=== PATIENT | male | born 1965 | race Caucasian/White ===

== ENCOUNTER 2016-06-03 14:14 | Inpatient (IN) | payer MEDICARE ==
[2016-06-03 14:27] VITALS: BP 135/97
[2016-06-03] MEDS ORDERED: Sodium Chloride 0.9% 1,000 ML IV ONE (15:01)
--- NOTE | 2016-06-03 15:01 | ED Physician Chart ---
Chief Complaint/HPI - Patient Information Date Seen:: 06/03/16 Time Seen:: 14:56 Chief Complaint:: abd pain and rt chest pain History of Present Illness:: pt c/o 1 week of rt side chest discomfort..worse w mvt/breathing. no sob. no cough. no fever. hx of esophagitis last year. pt has also had rt side abd discomfort x last 2 days. pos nausea, no vomiting. mild constipation, no diarrhea. no urinary changes. no back pain. no fever. pt has had hiv for 30 yrs and is on meds. pt fears this is his esophagitis which got very bad in past bc he didnt seek help early for it. he has been on nystatin since thursday from dr juan may relief also he is on zithromax but its nt clear for what... Allergies:: Allergies Allergy/AdvReac Type Severity Reaction Status Date / Time No Known Allergies Allergy Verified 02/10/16 03:47 Vitals:: Vital Signs - 8 hr 06/03/16 06/03/16 14:27 14:30 Temp 98.2 F HR 84 RR 15 BP 135/97 135/97 O2 Sat % 99 Historian:: Patient Review of Systems - Review of Systems General/Constitutional: No fever, No chills, No weight loss, No weakness, No diaphoresis, No edema, No loss of appetite Skin: No skin lesions, No rash, No bruising Head: No headache, No light-headedness Eyes: No loss of vision, No pain, No diplopia ENT: No earache, No nasal drainage, No sore throat, No tinnitus Neck: No neck pain, No swelling, No thyromegaly, No stiffness, No mass noted Cardio Vascular: Chest pain, No palpitations, No PND, No orthopnea, No edema Pulmonary: No SOB, No cough, No sputum, No wheezing GI: Nausea, No vomiting, No diarrhea, Pain, No melena, No hematochezia, No constipation, No hematemesis G/U: No dysuria, No frequency, No hematuria Musculoskeletal: No bone or joint pain, No back pain, No muscle pain, Other (no edema, no pains) Endocrine: No polyuria, No polydipsia Psychiatric: No prior psych history, No depression, No anxiety, No suicidal ideation Hematopoietic: No bruising, No lymphadenopathy Allergic/Immuno: No urticaria, No angioedema Neurological: No syncope, No focal symptoms, No weakness, No paresthesia, No headache, No seizure, No dizziness, No confusion, No vertigo Past Medical History - Past Medical History Past Medical History: Other (hiv x 30 yrs, esophagitis) Social History: Non Smoker, No Alcohol, No Drug Use Surgical History: Hernia (b ing hernia sxs) Medication: Reviewed Family Medical History - Family Member Father History Unknown: Yes Ethnicity: Living Status: Still Living Hx Family Cancer: Yes Hx Family Hypertension: Yes Hx Family Diabetes: Yes Physical Exam - Physical Examination General/Constitutional: Awake, Well-developed, well-nourished, Alert, No distress, GCS 15, Non-toxic appearing, Ambulatory Other Gen/Cons comments:: overall wn/wd. appears stable/nontoxic Head: Atraumatic Eyes: Lids, conjuctiva normal, PERRL, EOMI Skin: Nl inspection, No rash, No skin lesions, No ecchymosis, Well hydrated, No lymphadenopathy ENMT: External ears, nose nl, Nasal exam nl, Lips, teeth, gums nl Neck: Nontender, Full ROM w/o pain, No JVD, No nuchal rigidity, No bruit, No mass, No stridor Respiratory: Nl effort/Exclusion, Clear to Auscultation, No Wheeze/Rhonchi/Rales Other Respiratory comments:: lungs clear. no chest wall tndrness Cardio Vascular: RRR, No murmur, gallop, rubs, NL S1 S2 GI: No organomegaly, No hernia, Normal BS's, Nondistended, No mass/bruits, No McBurney tenderness Other GI comments:: abd is nontender to palpation by my exam...pt says its more a discomfort than a pain.. no masses, no rebound. : No CVA tenderness Extremities: No tenderness or effusion, Full ROM, normal strength in all extremities, No edema, Normal digits & nails Neuro/Psych: Alert/oriented, DTR's symmetric, Normal sensory exam, Normal motor strength, Judgement/insight normal, Mood normal, Normal gait, No focal deficits Misc: normal gait, Normal back, No paraspinal tenderness Labs/Radiology/EKG Results - Lab Results Results: Laboratory Tests 06/03/16 06/03/1617 15:35 15:35 15:35 WBC 3.2 L D RBC 4.11 L Hgb 12.3 L D Hct 35.3 L D MCV 85.8 MCH 29.8 MCHC Differential 34.8 RDW 13.3 Plt Count 154 D MPV 9.4 Sodium 130 L Potassium 4.4 Chloride 100 Carbon Dioxide 28.4 Anion Gap 6.0 L BUN 20 Creatinine 0.8 Est GFR ( Amer) > 60.0 Est GFR (Non-Af Amer) > 60.0 BUN/Creatinine Ratio 25.0 Glucose 91 Calcium 9.1 Total Bilirubin 0.3 AST 30 ALT 19 Alkaline Phosphatase 86 Ammonia Troponin I < 0.01 L Total Protein 8.0 Albumin 4.0 L Globulin 4.0 Albumin/Globulin Ratio 1.0 Lipase Urine Source Urine Color Urine Clarity Urine pH Ur Specific [place] Urine Protein Urine Glucose (UA) Urine Ketones Urine Blood Urine Nitrate Urine Bilirubin Urine Urobilinogen Ur Leukocyte Esterase 06/03/16 06/03/16 06/03/16 15:35 15:35 15:45 WBC RBC Hgb Hct MCV MCH MCHC Differential RDW Plt Count MPV Sodium Potassium Chloride Carbon Dioxide Anion Gap BUN Creatinine Est GFR ( Amer) Est GFR (Non-Af Amer) BUN/Creatinine Ratio Glucose Calcium Total Bilirubin AST ALT Alkaline Phosphatase Ammonia 18 Troponin I Total Protein Albumin Globulin Albumin/Globulin Ratio Lipase 45 Urine Source CLEAN C Urine Color YELLOW Urine Clarity CLEAR Urine pH 7.0 Ur Specific [place] 1.020 Urine Protein NEGATIVE Urine Glucose (UA) NEGATIVE Urine Ketones NEGATIVE Urine Blood NEGATIVE Urine Nitrate NEGATIVE Urine Bilirubin NEGATIVE Urine Urobilinogen 0.2 Ur Leukocyte Esterase NEGATIVE - Radiology Results Results: cxr nad ct a/p- nad;; prostatic ca+ noted - EKG Interpretations EKG Time:: 14:55 Rhythm: nsr [place]: 45 Rate: 81 Comments:: nrml ecg ED Septic Shock - . Is Septic Shock (SBP<90, OR Lactate>4 mmol\L) present?: No - <6hrs of presentation: Vital Signs: Vital Signs - 8 hr 06/03/16 06/03/16 14:27 14:30 Temp 98.2 F HR 84 RR 15 BP 135/97 135/97 O2 Sat % 99 Reassessment (Disposition) - Reassessment Reassessment:: case dw Dr Baker who has decided to admit Reassessment Condition:: Unchanged - Diagnosis Diagnosis:: 1 chest pain of uncertain etiology 2 abdominal pain of uncertain etiology 3 possible esophagitis 4 hx of HIV+ - Aftercare/Follow up Instructions Aftercare/Follow-Up Instructions:: Counseled pt regarding lab results/diagnosis & need follow up - Patient Disposition Admitted to:: Med/Surg Condition at Disposition:: Unchanged
--- NOTE | 2016-06-03 15:22 | Diagnostic Imaging Report ---
Portable chest x-ray History: Pain Allowing for portable technique the heart size is normal. No focal pulmonary parenchymal processes. No hilar or mediastinal abnormalities. Impression: No acute abnormalities.
[2016-06-03 15:51] LABS: MEAN CELL VOLUME 85.8 fl (80-99); MEAN CORPUSCULAR HEMOGLOBIN 29.8 pg (26.0-30.0); MEAN CORPUSCULAR HGB CONC 34.8 pg (28.0-36.0); MEAN PLATELET VOLUME 9.4 fl; RED BLOOD COUNT 4.11 Mil/cmm (4.30-5.70); RED CELL DISTRIBUTION WIDTH 13.3 % (11.5-20.0)
[2016-06-03 15:54] LABS: HEMOGLOBIN 12.3 gm/dL (13.2-17.3); WHITE BLOOD COUNT 3.2 Th/cmm (4.8-10.8)
[2016-06-03 15:55] LABS: HEMATOCRIT 35.3 % (39.0-49.0); PLATELET COUNT 154 Th/cmm (150-400)
[2016-06-03 15:58] LABS: URINE BILIRUBIN NEGATIVE (NEGATIVE); URINE BLOOD NEGATIVE (NEGATIVE); URINE COLOR YELLOW; URINE GLUCOSE (UA) NEGATIVE (NEGATIVE); URINE KETONE NEGATIVE (NEGATIVE); URINE PROTEIN NEGATIVE (NEGATIVE); URINE UROBILINOGEN 0.2 E.U./dL (0.2 - 1.0)
[2016-06-03 16:12] LABS: ALKALINE PHOSPHATASE 86 U/L (34-104); BILIRUBIN,TOTAL 0.3 mg/dL (0.3-1.0); BUN - UREA NITROGEN 20 mg/dL (7-25); CALCIUM SERUM 9.1 mg/dL (8.6-10.3); CARBON DIOXIDE 28.4 mEq/L (21.0-31.0); CHLORIDE 100 mEq/L (98-107); CREATININE - SERUM 0.8 mg/dL (0.7-1.3); GLUCOSE 91 mg/dL (70-105); POTASSIUM SERUM 4.4 mEq/L (3.5-5.1); SGOT 30 U/L (13-39); SGPT/ALT 19 U/L (7-52); SODIUM SERUM 130 mEq/L (136-145)
--- NOTE | 2016-06-03 16:18 | Diagnostic Imaging Report ---
CT scan abdomen and pelvis without intravenous contrast HISTORY: Pain Total DLP equals 345 CTDI equals 7.1 Axial sections were obtained from the xiphoid process down to the pubic symphysis. The liver exhibits a normal size and contour. No focal lesions. The spleen is slightly generous in size. No abnormality seen in the region of the pancreas. No focal renal lesions. No calculi. No hydronephrosis The exam of the pelvis demonstrates preservation of normal fat planes. No abnormal soft tissue masses or abnormal fluid collections. Prostatic calcifications noted. No definite abnormality seen in the region of the appendix. Nondilated stool-filled large bowel noted. Degenerative changes seen within the spine. IMPRESSION: 1. No definite acute abnormalities
[2016-06-03 16:36] LABS: BAND NEUTROPHILE 3 % (0-10); NEUTROPHILS 48 % (40-80); TOTAL CELLS COUNTED 100
[2016-06-03 16:37] LABS: EOSINOPHIL 23 % (0-5); PLATELET ESTIMATE ADEQUATE (NORMAL); PLATELET MORPHOLOGY NORMAL (NORMAL)
[2016-06-03 16:39] LABS: ANISOCYTOSIS 1+; OVALOCYTES 1+; POIKILOCYTOSIS 1+
[2016-06-03] MEDS ORDERED: Ipratropium Neb 0.5 mg/2.5 mL UD IH PRN (19:26)
[2016-06-03] MEDS ORDERED: Albuterol Nebulizer 2.5mg/3mL IH PRN (19:26)
[2016-06-03] MEDS ORDERED: guaiFENesin 200 MG/10 ML UDC PO PRN (19:26)
[2016-06-03] MEDS ORDERED: Fluconazole 200mg/100mL 200 MG/100 ML BAG IV ONE ×2 (19:30→21:18)
[2016-06-03] MEDS: D5-0.9%NS 1,000 ML IV SCH (21:48)
[2016-06-03] MEDS ORDERED: Pneumococcal Vaccine 0.5 mL Vial IM ONE (22:43)
[2016-06-04] MEDS: Morphine Sulfate 2 mg/mL 1mL Syr IVP PRN (04:22)
[2016-06-04 06:41] LABS: HEMATOCRIT 32.1 % (39.0-49.0); HEMOGLOBIN 11.3 gm/dL (13.2-17.3); MEAN CELL VOLUME 85.5 fl (80-99); MEAN CORPUSCULAR HGB CONC 35.1 pg (28.0-36.0); MEAN PLATELET VOLUME 9.4 fl; PLATELET COUNT 144 Th/cmm (150-400); RED BLOOD COUNT 3.76 Mil/cmm (4.30-5.70); RED CELL DISTRIBUTION WIDTH 13.5 % (11.5-20.0); WHITE BLOOD COUNT 2.6 Th/cmm (4.8-10.8)
[2016-06-04 06:53] LABS: ALB/GLOB RATIO 1.1 (1.0-1.8); ALKALINE PHOSPHATASE 91 U/L (34-104); ANION GAP 5.2 (7.0-16.0); BILIRUBIN,TOTAL 0.3 mg/dL (0.3-1.0); BUN - UREA NITROGEN 13 mg/dL (7-25); BUN/CREATININE RATIO 18.6; CALCIUM SERUM 8.6 mg/dL (8.6-10.3); CARBON DIOXIDE 25.8 mEq/L (21.0-31.0); CHLORIDE 103 mEq/L (98-107); CREATININE - SERUM 0.7 mg/dL (0.7-1.3); GLUCOSE 115 mg/dL (70-105); MAGNESIUM 1.9 mg/dL (1.9-2.7); SGOT 26 U/L (13-39); SGPT/ALT 17 U/L (7-52); SODIUM SERUM 130 mEq/L (136-145)
[2016-06-04 07:49] LABS: TSH 13.26 uIU/ml (0.34-5.60)
[2016-06-04 08:16] LABS: EOSINOPHIL 18 % (0-5); NEUTROPHILS 55 % (40-80); PLATELET ESTIMATE DECREASED PLATELETS (NORMAL); PLATELET MORPHOLOGY NORMAL (NORMAL); TOTAL CELLS COUNTED 100
[2016-06-04] MEDS: Multivitamin Tab PO SCH (08:45)
[2016-06-04] MEDS ORDERED: Pneumococcal Vaccine 0.5 mL Vial IM ONE (09:00)
[2016-06-04] MEDS: Sulfamethoxazole/TMP 800/160mg Tab PO SCH (09:31)
[2016-06-04] MEDS: D5-0.9%NS 1,000 ML IV SCH ×2 (09:32→20:30)
--- NOTE | 2016-06-04 12:59 | Internal Medicine Prog Note ---
Internal Medicine Subjective - Subjective Service Date: 06/04/16 ([id number]) Internal Medicine Objective - Results Result Diagrams: 06/04/16 05:52 06/04/16 05:52 Recent Labs: Laboratory Last Values WBC 2.6 Th/cmm (4.8-10.8) L 06/04/16 05:52 RBC 3.76 Mil/cmm (4.30-5.70) L 06/04/16 05:52 Hgb 11.3 gm/dL (13.2-17.3) L 06/04/16 05:52 Hct 32.1 % (39.0-49.0) L 06/04/16 05:52 MCV 85.5 fl (80-99) 06/04/16 05:52 MCH 30.0 pg (26.0-30.0) 06/04/16 05:52 MCHC Differential 35.1 pg (28.0-36.0) 06/04/16 05:52 RDW 13.5 % (11.5-20.0) 06/04/16 05:52 Plt Count 144 Th/cmm (150-400) L 06/04/16 05:52 MPV 9.4 fl 06/04/16 05:52 Band Neutrophils % 3 % (0-10) 06/03/16 15:35 Neutrophils (Manual) 55 % (40-80) 06/04/16 05:52 Lymphocytes 16 % (20-50) L 06/04/16 05:52 Monocytes 11 % (2-10) H 06/04/16 05:52 Eosinophils 18 % (0-5) H 06/04/16 05:52 Platelet Estimate DECREASED PLATELETS (NORMAL) 06/04/16 05:52 Platelet Morphology NORMAL (NORMAL) 06/04/16 05:52 Poikilocytosis 1+ 06/03/16 15:35 Anisocytosis 1+ 06/03/16 15:35 Ovalocytes 1+ 06/03/16 15:35 RBC Morph Micro Appear NORMAL (NORMAL) 06/04/16 05:52 Sodium 130 mEq/L (136-145) L 06/04/16 05:52 Potassium 4.0 mEq/L (3.5-5.1) 06/04/16 05:52 Chloride 103 mEq/L (98-107) 06/04/16 05:52 Carbon Dioxide 25.8 mEq/L (21.0-31.0) 06/04/16 05:52 Anion Gap 5.2 (7.0-16.0) L 06/04/16 05:52 BUN 13 mg/dL (7-25) 06/04/16 05:52 Creatinine 0.7 mg/dL (0.7-1.3) 06/04/16 05:52 Est GFR ( Amer) > 60.0 ml/min 06/04/16 05:52 Est GFR (Non-Af Amer) > 60.0 ml/min 06/04/16 05:52 BUN/Creatinine Ratio 18.6 06/04/16 05:52 Glucose 115 mg/dL (70-105) H 06/04/16 05:52 Calcium 8.6 mg/dL (8.6-10.3) 06/04/16 05:52 Magnesium 1.9 mg/dL (1.9-2.7) 06/04/16 05:52 Total Bilirubin 0.3 mg/dL (0.3-1.0) 06/04/16 05:52 AST 26 U/L (13-39) 06/04/16 05:52 ALT 17 U/L (7-52) 06/04/16 05:52 Alkaline Phosphatase 91 U/L (34-104) 06/04/16 05:52 Ammonia 40 umol/L (16-53) 06/04/16 05:52 Troponin I < 0.01 ng/mL (0.01-0.05) L 06/03/16 15:35 Total Protein 7.0 gm/dL (6.0-8.3) 06/04/16 05:52 Albumin 3.6 gm/dL (4.2-5.5) L 06/04/16 05:52 Globulin 3.4 gm/dL 06/04/16 05:52 Albumin/Globulin Ratio 1.1 (1.0-1.8) 06/04/16 05:52 Lipase 45 U/L (11-82) 06/03/16 15:35 TSH 13.26 uIU/ml (0.34-5.60) H 06/04/16 05:52 Urine Source CLEAN C 06/03/16 15:45 Urine Color YELLOW 06/03/16 15:45 Urine Clarity CLEAR (CLEAR) 06/03/16 15:45 Urine pH 7.0 06/03/16 15:45 Ur Specific [place] 1.020 (1.005-1.030) 06/03/16 15:45 Urine Protein NEGATIVE mg/dL (NEGATIVE) 06/03/16 15:45 Urine Glucose (UA) NEGATIVE mg/dL (NEGATIVE) 06/03/16 15:45 Urine Ketones NEGATIVE mg/dL (NEGATIVE) 06/03/16 15:45 Urine Blood NEGATIVE (NEGATIVE) 06/03/16 15:45 Urine Nitrate NEGATIVE (NEGATIVE) 06/03/16 15:45 Urine Bilirubin NEGATIVE (NEGATIVE) 06/03/16 15:45 Urine Urobilinogen 0.2 E.U./dL (0.2 - 1.0) 06/03/16 15:45 Ur Leukocyte Esterase NEGATIVE (NEGATIVE) 06/03/16 15:45 - Physical Exam Vitals and I&O: Vital Signs Temp 97.7 F 06/04/16 11:56 Pulse 73 06/04/16 11:56 Resp 20 06/04/16 11:56 BP 149/84 06/04/16 11:56 Pulse Ox 98 06/04/16 11:56 Intake & Output 06/03/16 06/04/16 06/04/16 18:59 06:59 18:59 Intake Total 350 1000 Output Total 450 Balance -100 1000 Intake: Intake, IV Amount 100 1000 D5-0.9%Ns 1,000 ml @ 100 1000 mls/hr IV .Q10H [facility] Rx#: [id number] Oral 250 Output: Urine 450 Other: # Voids 2 # Bowel Movements 0 Active Medications: Current Medications Acetaminophen (Tylenol) 650 mg PO Q4HR PRN PRN Reason: Mild Pain or Fever >101 Stop: 08/02/16 19:25 Acetaminophen/Hydrocodone Bitart ([place] 5mg/325mg) 1 tab PO Q4H PRN PRN Reason: Pain (Moderate) Stop: 08/02/16 19:25 Albuterol Sulfate (Albuterol 2.5mg/3ml Neb Ud) 2.5 mg IH Q2HR PRN PRN Reason: Shortness of Breath or Wheeze Stop: 08/02/16 19:25 Guaifenesin (Robitussin) 200 mg PO Q4HR PRN PRN Reason: Cough or Congestion Stop: 08/02/16 19:25 Dextrose/Sodium Chloride (D5-0.9%Ns) 1,000 mls @ 100 mls/hr IV .Q10H [facility] Stop: 08/02/16 19:29 Last Admin: 06/04/16 09:32 Dose: 100 mls/hr Fluconazole (Diflucan) 200 mg in 100 mls @ 100 mls/hr IV Q24HR JONAS Stop: 08/03/16 20:59 Ipratropium [place] (Atrovent Neb 0.5mg/2.5ml) 0.5 mg IH Q2HR PRN PRN Reason: Shortness of Breath or Wheeze Stop: 08/02/16 19:25 Lidocaine HCl (Xylocaine Viscous 2%) 15 ml PO TID [facility] Stop: 08/02/16 20:59 Last Admin: 06/04/16 08:44 Dose: 15 ml Morphine Sulfate (Morphine) 2 mg IVP Q4HR PRN PRN Reason: Pain (Severe) Stop: 08/02/16 19:25 Last Admin: 06/04/16 04:22 Dose: 2 mg Multivitamins/Vitamin C (Theragran) 1 tab PO DAILY [facility] Stop: 08/03/16 08:59 Last Admin: 06/04/16 08:45 Dose: 1 tab Nystatin (Nystatin) 100,000 units PO TID [facility] Stop: 08/02/16 20:59 Last Admin: 06/04/16 08:44 Dose: 100,000 units Ondansetron HCl (Zofran) 4 mg IV Q8H PRN PRN Reason: Nausea / Vomiting Stop: 08/02/16 19:25 Last Admin: 06/04/16 04:22 Dose: 4 mg Pantoprazole Sodium (Protonix) 40 mg IVP BID [facility] Stop: 08/03/16 08:59 Last Admin: 06/04/16 08:45 Dose: 40 mg Trimethoprim/Sulfamethoxazole (Bactrim Ds) 1 tab PO DAILY [facility] Stop: 08/03/16 08:59 Last Admin: 06/04/16 09:31 Dose: 1 tab Zolpidem Tartrate (Ambien) 10 mg PO HS PRN PRN Reason: Insomnia Stop: 08/02/16 19:25 - Procedures Procedures: Procedures Procedure Code Date EGD BIOPSY SINGLE/MULTIPLE 04505 02/10/16 EXCISION OF ESOPHAGUS, ENDO, DIAGN [id number] 02/10/16 EXCISION OF STOMACH, PYLORUS, ENDO, DIAGN [id number] 02/10/16 Internal Medicine Assmt/Plan - Assessment Assessment: Atypical Chest Pain Abdominal Pain hyponatremia protein francisco malnutrition
--- NOTE | 2016-06-04 14:08 | History & Physical ---
CHIEF COMPLAINT: Abdominal pain. HISTORY OF PRESENT ILLNESS: This is a 50-year-old male who is well known to me. According to the patient, he has been having abdominal pain for a week associated with right side chest discomfort. The patient states that it is associated with nausea, but no vomiting. Denies any diarrhea. For this reason, the patient is now admitted. PAST MEDICAL HISTORY: HIV for ____ years, esophagitis. PAST SURGICAL HISTORY: Hernia repair. MEDICATIONS: Please see medication reconciliation sheet. SOCIAL HISTORY: Denies any smoking, drinking or any illicit drug usage. FAMILY HISTORY: Noncontributory. REVIEW OF SYSTEMS: GENERAL: Denies any fevers, any chills. CARDIOVASCULAR: Denies any chest pain. RESPIRATORY: Denies any shortness of breath. GASTROINTESTINAL: Complains of abdominal pain. Denies any nausea, vomiting at this time. GENITOURINARY: Denies any dysuria. All other systems are reviewed by me and are negative. PHYSICAL EXAMINATION: GENERAL: The patient is well developed, well nourished. No apparent distress. VITAL SIGNS: Temperature 97.7, heart rate 72, blood pressure ____, respirations 20, O2 sat 98%. HEENT: Head; normocephalic, atraumatic. NECK: Supple. No mass. LUNGS: Few rhonchi bilaterally upon auscultation. HEART: Regular rhythm. No murmurs or gallops. SKIN: Intact, warm and dry to touch. ABDOMEN: Soft, nontender to touch. Positive bowel sounds in all 4 quadrants. LABORATORY DATA: WBC 2.6, H and H 11.3 and 32.1. Sodium 130, potassium 4.0, chloride 103, BUN 13, creatinine 0.7. TSH 13.26. DIAGNOSTICS: The patient had a CT of abdomen and pelvis and the impression is no definite acute abnormalities. The patient also had a chest x-ray done and the impression is no acute abnormalities. ASSESSMENT: Atypical chest pain, abdominal pain, human immunodeficiency virus, hyponatremia, and protein-calorie malnutrition. PLAN: The patient to be admitted to the med/surg unit. The patient will have consultation with Dr. Alex Huggins and also Dr. Massey. The patient will be kept on IV fluids for hydration. CBC and BMP will be monitored. The patient will be kept on IV antibiotics with Diflucan 200 mg IV q. 24. Also, Protonix 40 mg IV push b.i.d. We will continue to monitor the patient. [facility]# [id number]
[2016-06-04 16:35] LABS: CD4 PERCENT 8.4
[2016-06-04 16:36] LABS: % CD 8 POS LYMPSH 0.13
[2016-06-04 16:37] LABS: CD4/CD8 RATIO 3.1; LYMPHS (ABSOLUTE) 0.5
[2016-06-04] MEDS: Fluconazole 200 mg/100 mL Premix Bag IV SCH (20:24)
--- NOTE | 2016-06-05 01:29 | Admit Criteria Form ---
Admit Criteria Forms - Admit Criteria Diagnosis: CARDIOLOGY GRG Clinical Indications for Admission to Inpatient Care ( Place 'X' for any and all applicable criteria): Hospital admission is needed for appropriate care of the patient because of ANY ONE of the following (1): [ ] I. Hemodynamic instability as indicated by ALL of the following (1)(2)(3) (4)(5) [ ]a) Vital signs or other findings not as expected for chronic patient condition or baseline [ ]b) Instability indicated by ANY ONE of the following: [ ]i) Hypotension [ ]ii) Symptomatic Tachycardia unresponsive to treatment ( e.g., analgesia, fluids, sedation as indicated) [ ]iii) Inadequate perfusion indicated by ANY ONE of the following: [ ] 1) Lactic acidosis (> 2 mmol/L) [ ] 2) New abnormal capillary refill (> 3 seconds) [ ] 3) Reduced urine output [ ] 4) New altered mental status [ ]iv) Orthostatic vital sign changes unresponsive to treatment (e.g., fluids) [ ]v) IV inotropic or vasopressor medication required to maintain adequate blood pressure or perfusion [ ] II. Severe heart failure as indicated by ANY ONE of the following(17)(18) [ ]a) Respiratory distress [ ]b) Hypotension [ ]c) Anasarca (refractory to outpatient therapy) [ ]d) Cardiac arrhythmias of immediate concern [ ]e) Myocardial ischemia [ ] III. Cardiac arrhythmias or findings of immediate concern indicated by ANY ONE of the following (19)(20): [ ] a) Heart rhythms that are inherently dangerous or unstable indicated by ANY ONE of the following (21)(22)(23): [ ] i) Resuscitated ventricular fibrillation or cardiac arrest [ ] ii) Ventricular escape rhythm [ ] iii) Sustained ventricular tachycardia (30 seconds or more of ventricular rhythm at greater than 100 beats per minute) [ ] iv) Nonsustained ventricular tachycardia and ANY ONE of the following: [ ] 1) Suspected cardiac ischemia as cause or consequence of ventricular tachycardia [ ] 2) In setting of acute myocarditis [ ] b) Unstable cardiac conduction defects indicated by ANY ONE of the following(23)(24)(25) [ ] i) Type II second-degree atrioventricular block [ ]ii) Third-degree atrioventricular block [ ]iii) New-onset left bundle branch block with suspected myocardial ischemia [ ]c) Any heart rhythm and ANY ONE of the following (21)(22)(26)(27) (28) [ ] i) Continuous long-term ECG monitoring needed (e.g., initiation of drug requiring monitoring for more than 24 hours) [ ] ii) Patient has automatic implanted cardioverter defibrillator that is repeatedly firing, malfunctioning, or in need of immediate adjustment of settings beyond the scope of ambulatory or observation care [ ]d) Heart rhythms of concern due to ANY ONE of the following: [ ] i) Hypotension [ ] ii) Respiratory distress [ ] iii) Association with other significant symptoms (e.g., bradycardia with syncope or ongoing dizziness, supraventricular tachycardia with chest pain (14)(15)(17) [ ] IV. Monitoring for cardiac contusion beyond the scope of observation care needed [A](30)(31)(32) [ ] V. Surgical or device complication (e.g., valve replacement complication , pacemaker dysfunction) (35)(41)(44)(45)(46) [ ] . Inpatient palliative care needed. [B](49) Also use Inpatient Palliative Care Criteria [ ] VII. Nonbacterial thrombotic (marantic) endocarditis (36)(43)(47)(48) [X ] VIII. Cardiology condition, symptom, or finding for which emergency and observation care has failed or are not considered appropriate. [ ] IX. Acute valvular disease requiring inpatient as indicated by ANY ONE of the following (41) [ ]a) Acute valvular regurgitation (42) [ ]b) Noninfectious valvulitis (43) [ ]c) Obstructive valve thrombosis [ ]d) Paravalvular leak [ ]e) Other significant valvular disorder remaining after emergency or observation level of care (as appropriate) [ ]X. Pericardial disease requiring inpatient treatment as indicated by ANY ONE of the following (33)(34)(35)(36)(37) [ ]a) Suspected tamponade (38)(39)(40) [ ]b) Hemopericardium [ ]c) Other significant pericardial disorder remaining after emergency or observation level of care (as appropriate) [ ] XI. Cardiac ischemia beyond scope of emergency and observation care. [ ] XII. Hypertension requiring inpatient treatment as indicated by ANY ONE of the following (6)(7)(8) [ ]a) SBP greater than 220 mm Hg or DBP greater than 120 mmHg despite treatment [ ]b) SBP greater than 140 mm Hg or DBP greater than 100 mm Hg with evidence of acute end organ damage as indicated by ANY ONE of the following [ ] i) Altered mental status [ ] ii) Acute renal failure as indicated by new onset of ANY ONE of the following (9)(10)(11)(12)(13) [ ]1) 3-fold rise in serum creatinine from baseline [ ]2) Serum creatinine greater than 4 mg/dL ( 354 micromoles/L) with acute rise greater than 0.5 mg/dL (44.2 micromoles/L) [ ]3) Reduction of more than 75% in estimated glomerular filtration rate from baseline [ ]4) Estimated glomerular filtration rate less than 35 mL/min/1.73m2 (0.59 mL/sec/1.73m2) in child up to 18 years of age [ ]5) Cessation of urine output indicated by ALL of the following [ ]A. Adequate volume status [ ]B. Inadequate urine output as indicated by ANY ONE of the following [ ]a. Urine output less than 0.3 mL/kg/hr for 24 hours [ ]b. Anuria (urine output less than 0.1 mL/kg/hr) for 12 hours [ ] iii) Aortic dissection [ ] iv) Myocardial Ischemia [ ] v) Left ventricular heart failure [ ]vi) Retinal Hemorrhage [ ]vii) Other significant finding [ ]c) Hypertension in child requiring inpatient treatment as indicated by ALL of the following(14)(15)(16) [ ] i) Outpatient treatment not effective, not available , or not appropriate [ ]ii) SBP or DBP greater than 95th percentile for age [ ]iii) Evidence of acute end organ damage as indicated by ANY ONE of the following [ ]1) Altered mental status [ ]2) Acute renal failure as indicated by new onset of ANY ONE of the following(9)(10)(11)(12)(13) [ ]A. 3-fold rise in serum creatinine from baseline [ ]B. Serum creatinine greater than 4 mg/dL (354 micromoles/L) with acute rise greater than 0.5 mg/dL (44.2 micromoles/L) [ ]C. Reduction of more than 75% in estimated glomerular filtration rate from baseline [ ]D. Estimated glomerular filtration rate less than 35 mL/min/1.73m2 (0.59 mL/sec/1.73m2) in child up to 18 years of age [ ]E. Cessation of urine output indicated by ALL of the following [ ]a. Adequate volume status [ ]b. Inadequate urine output as indicated by ANY ONE of the following [ ]i) Urine output less than 0.3 mL/kg/hr for 24 hours [ ]ii) Anuria ( urine output less than 0.1 mL/kg/hr) for 12 hours [ ]3) Severe headache [ ]4) Visual disturbance [ ]5) Retinal hemorrhage [ ]6) Other significant finding [ ]XIII. Complications of transplanted heart indicated by ANY ONE of the following(61): [ ]a) Acute graft rejection requiring inpatient management (eg, intravenous immunosuppression)(62)(63) [ ]b) Acute graft heart failure indicated by ANY ONE of the following(64): [ ]i) Hemodynamic instability [ ]ii) Cardiac arrhythmias of immediate concern [ ]iii) Pulmonary edema that is very severe (eg, mechanical ventilation needed, imminent or likely, need for 100% oxygen to keep oxygen saturation above 90%) [ ]iv) Pulmonary edema that is persistent as indicated by ALL of the following: [ ]1) New need for oxygen therapy to keep oxygen saturation above 90% (or increased FiO2 need from baseline) [ ]2) Has not improved sufficiently with emergency department or observation care IV diuretics or other heart failure treatments[E] [ ]v) Altered mental status that is severe or persistent [ ]vi) Increased creatinine (new on laboratory test) with reduction of more than 50% in estimated glomerular filtration rate from baseline [ ]vii) Progressively (ongoing) rising creatinine (known from past laboratory test) with reduction of more than 25% in estimated glomerular filtration rate from baseline [ ]viii) Acute renal failure [ ]ix) Acute peripheral ischemia (eg, examination shows pulseless, cool, mottled, or cyanotic extremity) [ ]x) Pulmonary artery catheter monitoring needed [ ]xi) Other sign or symptom of heart failure requiring inpatient treatment (ie, too severe or not responsive to outpatient and observation care treatment) [ ]c) Infection requiring inpatient management (eg, Hemodynamic instability, need for intravenous antimicrobial treatment)(66)(67)(68)(69)(70) [ ]d) Cardiac allograft vasculopathy requiring inpatient management ( eg evidence of cardiac ischemia)(71) [ ]e) Other complication of transplanted heart (eg, stroke, severe pulmonary hypertension, severe valvular dysfunction) requiring inpatient management(72) The original [facility] [employer] content created by [facility] [email or web address] has been revised. The portions of the content which have been revised are identified through the use of italic text or in bold, and [email or web address] [place] has neither reviewed nor approved the modified material. All other unmodified content is copyright [facility] [email or web address]. Please see references footnoted in the original [facility] [email or web address] edition 2016 Admit Criteria Met?: Yes
[2016-06-05] MEDS: Morphine Sulfate 2 mg/mL 1mL Syr IVP PRN (02:44)
[2016-06-05 05:49] LABS: HEMATOCRIT 33.7 % (39.0-49.0); HEMOGLOBIN 11.7 gm/dL (13.2-17.3); MEAN CELL VOLUME 84.3 fl (80-99); MEAN CORPUSCULAR HEMOGLOBIN 29.3 pg (26.0-30.0); MEAN CORPUSCULAR HGB CONC 34.8 pg (28.0-36.0); MEAN PLATELET VOLUME 8.6 fl; PLATELET COUNT 142 Th/cmm (150-400); RED CELL DISTRIBUTION WIDTH 13.2 % (11.5-20.0)
[2016-06-05 06:40] LABS: ANION GAP 9.2 (7.0-16.0); BUN - UREA NITROGEN 12 mg/dL (7-25); CALCIUM SERUM 8.8 mg/dL (8.6-10.3); CARBON DIOXIDE 25.1 mEq/L (21.0-31.0); CHLORIDE 102 mEq/L (98-107); CREATININE - SERUM 0.8 mg/dL (0.7-1.3); GLUCOSE 107 mg/dL (70-105); POTASSIUM SERUM 4.3 mEq/L (3.5-5.1); SODIUM SERUM 132 mEq/L (136-145)
[2016-06-05 07:19] LABS: WHITE BLOOD COUNT 2.5 Th/cmm (4.8-10.8)
[2016-06-05 08:57] LABS: BAND NEUTROPHILE 2 % (0-10); EOSINOPHIL 15 % (0-5); NEUTROPHILS 50 % (40-80); TOTAL CELLS COUNTED 100
[2016-06-05 08:58] LABS: PLATELET ESTIMATE ADEQUATE (NORMAL); PLATELET MORPHOLOGY NORMAL (NORMAL)
[2016-06-05] MEDS: Hydrocodone/APAP 5mg/325mg Tab PO PRN ×2 (11:25→15:52)
[2016-06-05] MEDS: Multivitamin Tab PO SCH (11:25)
[2016-06-05] MEDS: Sulfamethoxazole/TMP 800/160mg Tab PO SCH (11:28)
--- NOTE | 2016-06-05 12:57 | Diagnostic Imaging Report ---
Ultrasound abdomen HISTORY: Abdominal pain COMPARISON: Abdominal ultrasound on 02/10/[address] abdomen and pelvis on 06/03/2016 Technique: Sonography of the abdomen was performed in multiple planes. FINDINGS: The liver demonstrates normal echogenicity and measures 15.5 cm. No evidence of focal lesions. No evidence of gallstones or gallbladder wall thickening. The common bile duct measures 2 mm. Assessment of the pancreas is limited due to bowel gas. The right kidney measures 9.6 cm. The left kidney measures 9 cm. No evidence of focal lesions or hydronephrosis. Note that the left renal margin is not well-visualized due to bowel gas. The spleen measures 12.5 cm. No evidence of focal lesions. IMPRESSION: Borderline prominent spleen. No evidence of gallstones No evidence of hydronephrosis.
[2016-06-05] MEDS: D5-0.9%NS 1,000 ML IV SCH ×3 (13:29→20:57)
--- NOTE | 2016-06-05 14:19 | Infectious Disease Prog Note ---
Infectious Disease Subjective - Review of Systems Service Date: 06/05/16 Subjective: [id number] Infectious Disease Objective - Results Result Diagrams: 06/05/16 05:40 06/05/16 05:40 Recent Labs: Laboratory Last Values WBC 2.5 Th/cmm (4.8-10.8) L 06/05/16 05:40 RBC 4.00 Mil/cmm (4.30-5.70) L 06/05/16 05:40 Hgb 11.7 gm/dL (13.2-17.3) L 06/05/16 05:40 Hct 33.7 % (39.0-49.0) L 06/05/16 05:40 MCV 84.3 fl (80-99) 06/05/16 05:40 MCH 29.3 pg (26.0-30.0) 06/05/16 05:40 MCHC Differential 34.8 pg (28.0-36.0) 06/05/16 05:40 RDW 13.2 % (11.5-20.0) 06/05/16 05:40 Plt Count 142 Th/cmm (150-400) L 06/05/16 05:40 MPV 8.6 fl 06/05/16 05:40 Absolute Lymphs (auto) 0.5 06/03/16 15:35 Band Neutrophils % 2 % (0-10) 06/05/16 05:40 Neutrophils (Manual) 50 % (40-80) 06/05/16 05:40 Lymphocytes 26 % (20-50) 06/05/16 05:40 Monocytes 7 % (2-10) 06/05/16 05:40 Eosinophils 15 % (0-5) H 06/05/16 05:40 Nucleated RBCs 0 06/03/16 15:35 Platelet Estimate ADEQUATE (NORMAL) 06/05/16 05:40 Platelet Morphology NORMAL (NORMAL) 06/05/16 05:40 Poikilocytosis 1+ 06/03/16 15:35 Anisocytosis 1+ 06/03/16 15:35 Ovalocytes 1+ 06/03/16 15:35 RBC Morph Micro Appear NORMAL (NORMAL) 06/05/16 05:40 Hematology Comments 06/03/16 15:35 Sodium 132 mEq/L (136-145) L 06/05/16 05:40 Potassium 4.3 mEq/L (3.5-5.1) 06/05/16 05:40 Chloride 102 mEq/L (98-107) 06/05/16 05:40 Carbon Dioxide 25.1 mEq/L (21.0-31.0) 06/05/16 05:40 Anion Gap 9.2 (7.0-16.0) 06/05/16 05:40 BUN 12 mg/dL (7-25) 06/05/16 05:40 Creatinine 0.8 mg/dL (0.7-1.3) 06/05/16 05:40 Est GFR ( Amer) > 60.0 ml/min (>90) 06/05/16 05:40 Est GFR (Non-Af Amer) > 60.0 ml/min 06/05/16 05:40 BUN/Creatinine Ratio 15.0 06/05/16 05:40 Glucose 107 mg/dL (70-105) H 06/05/16 05:40 Calcium 8.8 mg/dL (8.6-10.3) 06/05/16 05:40 Magnesium 1.9 mg/dL (1.9-2.7) 06/04/16 05:52 Total Bilirubin 0.3 mg/dL (0.3-1.0) 06/04/16 05:52 AST 26 U/L (13-39) 06/04/16 05:52 ALT 17 U/L (7-52) 06/04/16 05:52 Alkaline Phosphatase 91 U/L (34-104) 06/04/16 05:52 Ammonia 40 umol/L (16-53) 06/04/16 05:52 Troponin I < 0.01 ng/mL (0.01-0.05) L 06/03/16 15:35 Total Protein 7.0 gm/dL (6.0-8.3) 06/04/16 05:52 Albumin 3.6 gm/dL (4.2-5.5) L 06/04/16 05:52 Globulin 3.4 gm/dL 06/04/16 05:52 Albumin/Globulin Ratio 1.1 (1.0-1.8) 06/04/16 05:52 Lipase 45 U/L (11-82) 06/03/16 15:35 TSH 13.26 uIU/ml (0.34-5.60) H 06/04/16 05:52 Urine Source CLEAN C 06/03/16 15:45 Urine Color YELLOW 06/03/16 15:45 Urine Clarity CLEAR (CLEAR) 06/03/16 15:45 Urine pH 7.0 06/03/16 15:45 Ur Specific [place] 1.020 (1.005-1.030) 06/03/16 15:45 Urine Protein NEGATIVE mg/dL (NEGATIVE) 06/03/16 15:45 Urine Glucose (UA) NEGATIVE mg/dL (NEGATIVE) 06/03/16 15:45 Urine Ketones NEGATIVE mg/dL (NEGATIVE) 06/03/16 15:45 Urine Blood NEGATIVE (NEGATIVE) 06/03/16 15:45 Urine Nitrate NEGATIVE (NEGATIVE) 06/03/16 15:45 Urine Bilirubin NEGATIVE (NEGATIVE) 06/03/16 15:45 Urine Urobilinogen 0.2 E.U./dL (0.2 - 1.0) 06/03/16 15:45 Ur Leukocyte Esterase NEGATIVE (NEGATIVE) 06/03/16 15:45 % CD4 Cells 8.4 06/03/16 15:35 Absolute CD4 Count 42 06/03/16 15:35 T-Lymph CD4/CD8 Ratio 3.1 06/03/16 15:35 % CD8 Cells 0.13 06/03/16 15:35 Absolute CD8 Count 312 06/03/16 15:35 - Physical Exam Vitals and I&O: Vital Signs Temp 98.1 F 06/05/16 12:00 Pulse 77 06/05/16 12:00 Resp 17 06/05/16 12:00 BP 141/88 06/05/16 12:00 Pulse Ox 97 06/05/16 12:00 Intake & Output 06/04/16 06/05/16 06/05/16 18:59 06:59 18:59 Intake Total 2500 2320 Output Total 200 Balance 2500 2120 Intake: Intake, IV Amount 1000 2000 D5-0.9%Ns 1,000 ml @ 100 1000 2000 mls/hr IV .Q10H [facility] Rx#: [id number] Oral 1500 320 Output: Urine 200 Other: # Voids 4 3 1 # Bowel Movements 0 0 Active Medications: Current Medications Acetaminophen (Tylenol) 650 mg PO Q4HR PRN PRN Reason: Mild Pain or Fever >101 Stop: 08/02/16 19:25 Acetaminophen/Hydrocodone Bitart ([place] 5mg/325mg) 1 tab PO Q4H PRN PRN Reason: Pain (Moderate) Stop: 08/02/16 19:25 Last Admin: 06/05/16 11:25 Dose: 1 tab Albuterol Sulfate (Albuterol 2.5mg/3ml Neb Ud) 2.5 mg IH Q2HR PRN PRN Reason: Shortness of Breath or Wheeze Stop: 08/02/16 19:25 Docusate Sodium (Colace) 100 mg PO BID PRN PRN Reason: Constipation Stop: 08/04/16 16:59 Last Admin: 06/05/16 11:25 Dose: 100 mg Guaifenesin (Robitussin) 200 mg PO Q4HR PRN PRN Reason: Cough or Congestion Stop: 08/02/16 19:25 Dextrose/Sodium Chloride (D5-0.9%Ns) 1,000 mls @ 100 mls/hr IV .Q10H [facility] Stop: 08/02/16 19:29 Last Admin: 06/05/16 13:29 Dose: 100 mls/hr Fluconazole (Diflucan) 200 mg in 100 mls @ 100 mls/hr IV Q24HR [facility] Stop: 08/03/16 20:59 Last Admin: 06/04/16 20:24 Dose: 100 mls/hr Ipratropium [place] (Atrovent Neb 0.5mg/2.5ml) 0.5 mg IH Q2HR PRN PRN Reason: Shortness of Breath or Wheeze Stop: 08/02/16 19:25 Lidocaine HCl (Xylocaine Viscous 2%) 15 ml PO TID [facility] Stop: 08/02/16 20:59 Last Admin: 06/05/16 13:27 Dose: 15 ml Morphine Sulfate (Morphine) 2 mg IVP Q4HR PRN PRN Reason: Pain (Severe) Stop: 08/02/16 19:25 Last Admin: 06/05/16 02:44 Dose: 2 mg Multivitamins/Vitamin C (Theragran) 1 tab PO DAILY [facility] Stop: 08/03/16 08:59 Last Admin: 06/05/16 11:25 Dose: 1 tab Nystatin (Nystatin) 100,000 units PO TID [facility] Stop: 08/02/16 20:59 Last Admin: 06/05/16 13:28 Dose: Not Given Ondansetron HCl (Zofran) 4 mg IV Q8H PRN PRN Reason: Nausea / Vomiting Stop: 08/02/16 19:25 Last Admin: 06/04/16 04:22 Dose: 4 mg Pantoprazole Sodium (Protonix) 40 mg IVP BID [facility] Stop: 08/03/16 08:59 Last Admin: 06/05/16 11:26 Dose: 40 mg Trimethoprim/Sulfamethoxazole (Bactrim Ds) 1 tab PO DAILY [facility] Stop: 08/03/16 08:59 Last Admin: 06/05/16 11:28 Dose: 1 tab Zolpidem Tartrate (Ambien) 10 mg PO HS PRN PRN Reason: Insomnia Stop: 08/02/16 19:25 - Procedures Procedures: Procedures Procedure Code Date EGD BIOPSY SINGLE/MULTIPLE 90003 02/10/16 EXCISION OF ESOPHAGUS, ENDO, DIAGN [id number] 02/10/16 EXCISION OF STOMACH, PYLORUS, ENDO, DIAGN [id number] 02/10/16 Infectious Disease Assmt/Plan - Problem List Patient Problems: All Active Problems HIV disease (Acute) B20 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
[2016-06-05 14:24] LABS: FOLIC ACID 18.5 ng/mL (>3.0)
--- NOTE | 2016-06-05 15:25 | Internal Medicine Prog Note ---
Internal Medicine Subjective - Subjective Patient seen and examined:: with staff, chart reviewed Patient is:: awake, interactive Patient Complaints of:: congestion Per staff patient is:: no adverse event, poor appetite Internal Medicine Objective - Results Result Diagrams: 06/05/16 05:40 06/05/16 05:40 Recent Labs: Laboratory Last Values WBC 2.5 Th/cmm (4.8-10.8) L 06/05/16 05:40 RBC 4.00 Mil/cmm (4.30-5.70) L 06/05/16 05:40 Hgb 11.7 gm/dL (13.2-17.3) L 06/05/16 05:40 Hct 33.7 % (39.0-49.0) L 06/05/16 05:40 MCV 84.3 fl (80-99) 06/05/16 05:40 MCH 29.3 pg (26.0-30.0) 06/05/16 05:40 MCHC Differential 34.8 pg (28.0-36.0) 06/05/16 05:40 RDW 13.2 % (11.5-20.0) 06/05/16 05:40 Plt Count 142 Th/cmm (150-400) L 06/05/16 05:40 MPV 8.6 fl 06/05/16 05:40 Absolute Lymphs (auto) 0.5 06/03/16 15:35 Band Neutrophils % 2 % (0-10) 06/05/16 05:40 Neutrophils (Manual) 50 % (40-80) 06/05/16 05:40 Lymphocytes 26 % (20-50) 06/05/16 05:40 Monocytes 7 % (2-10) 06/05/16 05:40 Eosinophils 15 % (0-5) H 06/05/16 05:40 Nucleated RBCs 0 06/03/16 15:35 Platelet Estimate ADEQUATE (NORMAL) 06/05/16 05:40 Platelet Morphology NORMAL (NORMAL) 06/05/16 05:40 Poikilocytosis 1+ 06/03/16 15:35 Anisocytosis 1+ 06/03/16 15:35 Ovalocytes 1+ 06/03/16 15:35 RBC Morph Micro Appear NORMAL (NORMAL) 06/05/16 05:40 Hematology Comments 06/03/16 15:35 Sodium 132 mEq/L (136-145) L 06/05/16 05:40 Potassium 4.3 mEq/L (3.5-5.1) 06/05/16 05:40 Chloride 102 mEq/L (98-107) 06/05/16 05:40 Carbon Dioxide 25.1 mEq/L (21.0-31.0) 06/05/16 05:40 Anion Gap 9.2 (7.0-16.0) 06/05/16 05:40 BUN 12 mg/dL (7-25) 06/05/16 05:40 Creatinine 0.8 mg/dL (0.7-1.3) 06/05/16 05:40 Est GFR ( Amer) > 60.0 ml/min (>90) 06/05/16 05:40 Est GFR (Non-Af Amer) > 60.0 ml/min 06/05/16 05:40 BUN/Creatinine Ratio 15.0 06/05/16 05:40 Glucose 107 mg/dL (70-105) H 06/05/16 05:40 Calcium 8.8 mg/dL (8.6-10.3) 06/05/16 05:40 Magnesium 1.9 mg/dL (1.9-2.7) 06/04/16 05:52 Total Bilirubin 0.3 mg/dL (0.3-1.0) 06/04/16 05:52 AST 26 U/L (13-39) 06/04/16 05:52 ALT 17 U/L (7-52) 06/04/16 05:52 Alkaline Phosphatase 91 U/L (34-104) 06/04/16 05:52 Ammonia 40 umol/L (16-53) 06/04/16 05:52 Troponin I < 0.01 ng/mL (0.01-0.05) L 06/03/16 15:35 Total Protein 7.0 gm/dL (6.0-8.3) 06/04/16 05:52 Albumin 3.6 gm/dL (4.2-5.5) L 06/04/16 05:52 Globulin 3.4 gm/dL 06/04/16 05:52 Albumin/Globulin Ratio 1.1 (1.0-1.8) 06/04/16 05:52 Lipase 45 U/L (11-82) 06/03/16 15:35 Vitamin B12 228 pg/mL (211-946) 06/04/16 05:52 Folic Acid 18.5 ng/mL (>3.0) 06/04/16 05:52 TSH 13.26 uIU/ml (0.34-5.60) H 06/04/16 05:52 Urine Source CLEAN C 06/03/16 15:45 Urine Color YELLOW 06/03/16 15:45 Urine Clarity CLEAR (CLEAR) 06/03/16 15:45 Urine pH 7.0 06/03/16 15:45 Ur Specific [place] 1.020 (1.005-1.030) 06/03/16 15:45 Urine Protein NEGATIVE mg/dL (NEGATIVE) 06/03/16 15:45 Urine Glucose (UA) NEGATIVE mg/dL (NEGATIVE) 06/03/16 15:45 Urine Ketones NEGATIVE mg/dL (NEGATIVE) 06/03/16 15:45 Urine Blood NEGATIVE (NEGATIVE) 06/03/16 15:45 Urine Nitrate NEGATIVE (NEGATIVE) 06/03/16 15:45 Urine Bilirubin NEGATIVE (NEGATIVE) 06/03/16 15:45 Urine Urobilinogen 0.2 E.U./dL (0.2 - 1.0) 06/03/16 15:45 Ur Leukocyte Esterase NEGATIVE (NEGATIVE) 06/03/16 15:45 % CD4 Cells 8.4 06/03/16 15:35 Absolute CD4 Count 42 06/03/16 15:35 T-Lymph CD4/CD8 Ratio 3.1 06/03/16 15:35 % CD8 Cells 0.13 06/03/16 15:35 Absolute CD8 Count 312 06/03/16 15:35 - Physical Exam Vitals and I&O: Vital Signs Temp 98.1 F 06/05/16 12:00 Pulse 77 06/05/16 12:00 Resp 17 06/05/16 12:00 BP 141/88 06/05/16 12:00 Pulse Ox 97 06/05/16 12:00 Intake & Output 06/04/16 06/05/16 06/05/16 18:59 06:59 18:59 Intake Total 2500 2320 Output Total 200 Balance 2500 2120 Intake: Intake, IV Amount 1000 2000 D5-0.9%Ns 1,000 ml @ 100 1000 2000 mls/hr IV .Q10H [facility] Rx#: [id number] Oral 1500 320 Output: Urine 200 Other: # Voids 4 3 1 # Bowel Movements 0 0 Active Medications: Current Medications Acetaminophen (Tylenol) 650 mg PO Q4HR PRN PRN Reason: Mild Pain or Fever >101 Stop: 08/02/16 19:25 Acetaminophen/Hydrocodone Bitart ([place] 5mg/325mg) 1 tab PO Q4H PRN PRN Reason: Pain (Moderate) Stop: 08/02/16 19:25 Last Admin: 06/05/16 11:25 Dose: 1 tab Albuterol Sulfate (Albuterol 2.5mg/3ml Neb Ud) 2.5 mg IH Q2HR PRN PRN Reason: Shortness of Breath or Wheeze Stop: 08/02/16 19:25 Azithromycin (Zithromax) 1,200 mg PO X1 [facility] Stop: 08/04/16 14:59 Docusate Sodium (Colace) 100 mg PO BID PRN PRN Reason: Constipation Stop: 08/04/16 16:59 Last Admin: 06/05/16 11:25 Dose: 100 mg Guaifenesin (Robitussin) 200 mg PO Q4HR PRN PRN Reason: Cough or Congestion Stop: 08/02/16 19:25 Dextrose/Sodium Chloride (D5-0.9%Ns) 1,000 mls @ 100 mls/hr IV .Q10H [facility] Stop: 08/02/16 19:29 Last Admin: 06/05/16 13:29 Dose: 100 mls/hr Fluconazole (Diflucan) 200 mg in 100 mls @ 100 mls/hr IV Q24HR [facility] Stop: 08/03/16 20:59 Last Admin: 06/04/16 20:24 Dose: 100 mls/hr Ipratropium [place] (Atrovent Neb 0.5mg/2.5ml) 0.5 mg IH Q2HR PRN PRN Reason: Shortness of Breath or Wheeze Stop: 08/02/16 19:25 Lidocaine HCl (Xylocaine Viscous 2%) 15 ml PO TID [facility] Stop: 08/02/16 20:59 Last Admin: 06/05/16 13:27 Dose: 15 ml Morphine Sulfate (Morphine) 2 mg IVP Q4HR PRN PRN Reason: Pain (Severe) Stop: 08/02/16 19:25 Last Admin: 06/05/16 02:44 Dose: 2 mg Multivitamins/Vitamin C (Theragran) 1 tab PO DAILY [facility] Stop: 08/03/16 08:59 Last Admin: 06/05/16 11:25 Dose: 1 tab Nystatin (Nystatin) 100,000 units PO TID [facility] Stop: 08/02/16 20:59 Last Admin: 06/05/16 13:28 Dose: Not Given Ondansetron HCl (Zofran) 4 mg IV Q8H PRN PRN Reason: Nausea / Vomiting Stop: 08/02/16 19:25 Last Admin: 06/04/16 04:22 Dose: 4 mg Pantoprazole Sodium (Protonix) 40 mg IVP BID [facility] Stop: 08/03/16 08:59 Last Admin: 06/05/16 11:26 Dose: 40 mg Trimethoprim/Sulfamethoxazole (Bactrim Ds) 1 tab PO DAILY [facility] Stop: 08/03/16 08:59 Last Admin: 06/05/16 11:28 Dose: 1 tab Zolpidem Tartrate (Ambien) 10 mg PO HS PRN PRN Reason: Insomnia Stop: 08/02/16 19:25 General: lethargic HEENT: NC/AT, PERRLA Neck: Supple Lungs: congested Cardiovascular: RRR, Normal S1, Normal S2 Abdomen: soft non-tender, globular Extremities: excoriation Neurological: no change - Procedures Procedures: Procedures Procedure Code Date EGD BIOPSY SINGLE/MULTIPLE 41286 02/10/16 EXCISION OF ESOPHAGUS, ENDO, DIAGN [id number] 02/10/16 EXCISION OF STOMACH, PYLORUS, ENDO, DIAGN [id number] 02/10/16 Internal Medicine Assmt/Plan - Assessment Assessment: Atypical Chest Pain Abdominal Pain hyponatremia protein francisco malnutrition hiv herpes esophagitis - Plan Plan: cont on antifungal cont on haart cont on ivf branden malik
[2016-06-05] MEDS: Fluconazole 200 mg/100 mL Premix Bag IV SCH (21:15)
[2016-06-06] MEDS: Hydrocodone/APAP 5mg/325mg Tab PO PRN ×2 (03:33→09:29)
--- NOTE | 2016-06-06 03:45 | Consultation ---
REFERRING PHYSICIAN: Dr. Baker. REASON FOR CONSULTATION: Lower abdominal pain. HISTORY OF PRESENT ILLNESS: This is a 50-year-old male with HIV, AIDS, not taking his antiretroviral medications, been having lower abdominal pain for approximately one week associated with nausea, but no vomiting. He denies having any diarrhea. He has some mild constipation. Denies having any hematemesis, coffee-ground emesis, melena, or hematochezia. PAST MEDICAL HISTORY: HIV and esophagitis. PAST SURGICAL HISTORY: Hernia repair. FAMILY HISTORY: No first-degree relatives with colon cancer. SOCIAL HISTORY: Denies tobacco, alcohol, or IV drug usage. ALLERGIES: None. CURRENT MEDICATIONS: Tylenol, Sunburst, albuterol, Diflucan, Robitussin, Atrovent____, morphine, nystatin, Protonix, Ambien. REVIEW OF SYSTEMS: Ten-point review of system was performed and the pertinent positive was lower abdominal pain, HIV, AIDS. All systems were, otherwise, negative. PHYSICAL EXAMINATION: VITAL SIGNS: Temperature 98.4, breathing 17, pulse of 72, blood pressure 122/80, satting 99%. GENERAL: In no apparent distress. EYES: Anicteric, normal conjunctivae. HEENT: Normocephalic, atraumatic. Moist mucous membranes. NECK: Soft and supple. CHEST: Clear in effort. CARDIOVASCULAR: Regular rate and rhythm. ABDOMEN: Soft, nontender, nondistended. SKIN: Warm, dry. EXTREMITIES: Reveal no cyanosis. PSYCHOLOGIC: Alert and oriented x 3. LABORATORY DATA: Show white count ____2.5, hemoglobin 11.7, platelets of 142, creatinine 0.8, total bilirubin 0.3, AST 26, ALT 17, alkaline phosphatase 91. Lipase is 45. Urinalysis was negative. IMPRESSION: This is a 50-year-old male who has lower abdominal pain, HIV, AIDS. CT abdomen and pelvis was unremarkable. LFTs and lipase were within normal limits, the cause is unknown at this time. The patient was offered endoscopic evaluation versus EGD, colonoscopies for further evaluation, he declined. He was made aware the failure to have proper workup could result in a missed diagnosis, ____ missed treatment options resulting in early or unforeseeable disability. He understands all his questions or answers. PLAN: 1. The patient refused EGD, colonoscopy. 2. Continue supportive care. 3. Colace as needed. 4. Consider procedure if the patient agreed or when he gets to his doctors at [facility]. The patient was made aware and we had a long discussion. Thank you for allowing me to participate. Please call me if any questions. JOB# [id number]
--- NOTE | 2016-06-06 07:35 | Consultation ---
REFERRING PHYSICIAN: Bay Baker D.O. REASON FOR CONSULTATION: HIV status. HISTORY OF PRESENT ILLNESS: The patient is a 50-year-old male with a past medical history of HIV for 30 years, esophagitis admitted to the hospital for right-sided chest discomfort. The patient stated that it was associated with nausea and had a similar episode in the past related to the esophagitis. The patient is ____ not in acute distress. No fever, no chills. PAST MEDICAL HISTORY: Esophagitis and HIV for 30 years, not on any antiretroviral. For insurance purposes, he cannot get his medications. ALLERGIES: NKDA. MEDICATIONS: As per medication reconciliation sheet. Antibiotic hager, the patient on Bactrim, Zithromax and Diflucan as prophylaxis. SOCIAL HISTORY: Noncontributory. SOCIAL HISTORY: The patient lives at home. Denies any smoking, alcohol or drug use. ALLERGIES: NKDA. REVIEW OF SYSTEMS: The patient has chest discomfort, which is improving. The patient stated that he has esophagitis. Otherwise, no fever, no chills. PHYSICAL EXAMINATION: VITAL SIGNS: Shows temperature is 98.1, pulse is 77, respirations 17, blood pressure 141/88, and oxygen saturation 97%. GENERAL: The patient is comfortable lying in the bed, not in acute distress. HEENT: Head is normocephalic, atraumatic. Oral cavity moist, pink tongue. Eyes: No pallor, no icterus. Pupils PERRLA, EOMI. NECK: Supple, no JVD. Trachea in midline. CHEST: Bilateral breath sounds. No crackles or wheezing. HEART: S1, S2 within normal limit, regular rhythm. No murmur, no gallop. ABDOMEN: Soft, nontender, nondistended. Bowel sounds present. EXTREMITIES: No cyanosis, no clubbing, no edema. NEUROLOGIC: Alert, awake, oriented x 3. No focal neuro deficit. LABORATORY DATA: Current labs shows WBC count is 2500, hemoglobin 11.7, hematocrit 33.7, platelets 142,000, neutrophil is 50%, and lymphocytes are 26%. Sodium is 132, potassium 4.3, chloride 102, bicarbonate is 25, BUN is 12, creatinine 0.8, glucose is 107. Urinalysis shows negative nitrite, negative leukoesterase. IMPRESSION: 1. Human immunodeficiency virus disease, not on any antiretroviral because of insurance purposes. There is no benefit of resuming antiretroviral for short term while the patient in hospital rather it can induce resistance. So, we will keep off antiretroviral till his issue with the medication is resolved. 2. Esophagitis. RECOMMENDATIONS: We will continue Bactrim DS, Diflucan and azithromycin as prophylaxis. May get child welfare social worker to ADAP program, which he is interested in. Thank you Dr. Baker for involving me in taking care of this patient. JOB# [id number] [email or web address]
[2016-06-06] MEDS ORDERED: Lactated Ringer 1,000 ML IV SCH (08:00)
[2016-06-06] MEDS ORDERED: Meperidine 25 mg/mL 1mL Syr IVP ONE (09:00)
[2016-06-06] MEDS: Sulfamethoxazole/TMP 800/160mg Tab PO SCH (09:28)
[2016-06-06] MEDS: Multivitamin Tab PO SCH (09:29)
[2016-06-06] MEDS ORDERED: metroNIDAZOLE 500mg/NS 100mL 500 MG/100 ML BAG IV SCH (11:00)
--- NOTE | 2016-06-06 11:43 | Infectious Disease Prog Note ---
Infectious Disease Subjective - Review of Systems Service Date: 06/06/16 Subjective: There is no fever. There is no new change. Infectious Disease Objective - Results Result Diagrams: 06/05/16 05:40 06/05/16 05:40 Recent Labs: Laboratory Last Values WBC 2.5 Th/cmm (4.8-10.8) L 06/05/16 05:40 RBC 4.00 Mil/cmm (4.30-5.70) L 06/05/16 05:40 Hgb 11.7 gm/dL (13.2-17.3) L 06/05/16 05:40 Hct 33.7 % (39.0-49.0) L 06/05/16 05:40 MCV 84.3 fl (80-99) 06/05/16 05:40 MCH 29.3 pg (26.0-30.0) 06/05/16 05:40 MCHC Differential 34.8 pg (28.0-36.0) 06/05/16 05:40 RDW 13.2 % (11.5-20.0) 06/05/16 05:40 Plt Count 142 Th/cmm (150-400) L 06/05/16 05:40 MPV 8.6 fl 06/05/16 05:40 Absolute Lymphs (auto) 0.5 06/03/16 15:35 Band Neutrophils % 2 % (0-10) 06/05/16 05:40 Neutrophils (Manual) 50 % (40-80) 06/05/16 05:40 Lymphocytes 26 % (20-50) 06/05/16 05:40 Monocytes 7 % (2-10) 06/05/16 05:40 Eosinophils 15 % (0-5) H 06/05/16 05:40 Nucleated RBCs 0 06/03/16 15:35 Platelet Estimate ADEQUATE (NORMAL) 06/05/16 05:40 Platelet Morphology NORMAL (NORMAL) 06/05/16 05:40 Poikilocytosis 1+ 06/03/16 15:35 Anisocytosis 1+ 06/03/16 15:35 Ovalocytes 1+ 06/03/16 15:35 RBC Morph Micro Appear NORMAL (NORMAL) 06/05/16 05:40 Hematology Comments 06/03/16 15:35 Sodium 132 mEq/L (136-145) L 06/05/16 05:40 Potassium 4.3 mEq/L (3.5-5.1) 06/05/16 05:40 Chloride 102 mEq/L (98-107) 06/05/16 05:40 Carbon Dioxide 25.1 mEq/L (21.0-31.0) 06/05/16 05:40 Anion Gap 9.2 (7.0-16.0) 06/05/16 05:40 BUN 12 mg/dL (7-25) 06/05/16 05:40 Creatinine 0.8 mg/dL (0.7-1.3) 06/05/16 05:40 Est GFR ( Amer) > 60.0 ml/min (>90) 06/05/16 05:40 Est GFR (Non-Af Amer) > 60.0 ml/min 06/05/16 05:40 BUN/Creatinine Ratio 15.0 06/05/16 05:40 Glucose 107 mg/dL (70-105) H 06/05/16 05:40 POC Glucose 87 MG/DL (70 - 105) 06/06/16 07:46 Calcium 8.8 mg/dL (8.6-10.3) 06/05/16 05:40 Magnesium 1.9 mg/dL (1.9-2.7) 06/04/16 05:52 Total Bilirubin 0.3 mg/dL (0.3-1.0) 06/04/16 05:52 AST 26 U/L (13-39) 06/04/16 05:52 ALT 17 U/L (7-52) 06/04/16 05:52 Alkaline Phosphatase 91 U/L (34-104) 06/04/16 05:52 Ammonia 40 umol/L (16-53) 06/04/16 05:52 Troponin I < 0.01 ng/mL (0.01-0.05) L 06/03/16 15:35 Total Protein 7.0 gm/dL (6.0-8.3) 06/04/16 05:52 Albumin 3.6 gm/dL (4.2-5.5) L 06/04/16 05:52 Globulin 3.4 gm/dL 06/04/16 05:52 Albumin/Globulin Ratio 1.1 (1.0-1.8) 06/04/16 05:52 Lipase 45 U/L (11-82) 06/03/16 15:35 Vitamin B12 228 pg/mL (211-946) 06/04/16 05:52 Folic Acid 18.5 ng/mL (>3.0) 06/04/16 05:52 TSH 13.26 uIU/ml (0.34-5.60) H 06/04/16 05:52 Urine Source CLEAN C 06/03/16 15:45 Urine Color YELLOW 06/03/16 15:45 Urine Clarity CLEAR (CLEAR) 06/03/16 15:45 Urine pH 7.0 06/03/16 15:45 Ur Specific [place] 1.020 (1.005-1.030) 06/03/16 15:45 Urine Protein NEGATIVE mg/dL (NEGATIVE) 06/03/16 15:45 Urine Glucose (UA) NEGATIVE mg/dL (NEGATIVE) 06/03/16 15:45 Urine Ketones NEGATIVE mg/dL (NEGATIVE) 06/03/16 15:45 Urine Blood NEGATIVE (NEGATIVE) 06/03/16 15:45 Urine Nitrate NEGATIVE (NEGATIVE) 06/03/16 15:45 Urine Bilirubin NEGATIVE (NEGATIVE) 06/03/16 15:45 Urine Urobilinogen 0.2 E.U./dL (0.2 - 1.0) 06/03/16 15:45 Ur Leukocyte Esterase NEGATIVE (NEGATIVE) 06/03/16 15:45 % CD4 Cells 8.4 06/03/16 15:35 Absolute CD4 Count 42 06/03/16 15:35 T-Lymph CD4/CD8 Ratio 3.1 06/03/16 15:35 % CD8 Cells 0.13 06/03/16 15:35 Absolute CD8 Count 312 06/03/16 15:35 - Physical Exam Vitals and I&O: Vital Signs Temp 97.2 F 06/06/16 07:00 Pulse 66 06/06/16 07:00 Resp 18 06/06/16 07:00 BP 138/79 06/06/16 07:00 Pulse Ox 98 06/06/16 03:56 Intake & Output 06/05/16 06/06/16 06/06/16 18:59 06:59 18:59 Intake Total 411.667 435 Balance 411.667 435 Intake: Intake, IV Amount 411.667 435 D5-0.9%Ns 1,000 ml @ 100 411.667 335 mls/hr IV .Q10H [facility] Rx#: [id number] Fluconazole 200mg/100mL 100 200 mg In 100 ml @ 100 mls/hr IV Q24HR [facility] Rx#: [id number] Other: # Voids 1 Stool Characteristics Liquid Active Medications: Current Medications Acetaminophen (Tylenol) 650 mg PO Q4HR PRN PRN Reason: Mild Pain or Fever >101 Stop: 08/02/16 19:25 Acetaminophen/Hydrocodone Bitart ([place] 5mg/325mg) 1 tab PO Q4H PRN PRN Reason: Pain (Moderate) Stop: 08/02/16 19:25 Last Admin: 06/06/16 09:29 Dose: 1 tab Albuterol Sulfate (Albuterol 2.5mg/3ml Neb Ud) 2.5 mg IH Q2HR PRN PRN Reason: Shortness of Breath or Wheeze Stop: 08/02/16 19:25 Azithromycin (Zithromax) 1,250 mg PO QTHUR [facility] Stop: 08/04/16 15:59 Last Admin: 06/05/16 15:52 Dose: 1,250 mg Docusate Sodium (Colace) 100 mg PO BID PRN PRN Reason: Constipation Stop: 08/04/16 16:59 Last Admin: 06/05/16 11:25 Dose: 100 mg Guaifenesin (Robitussin) 200 mg PO Q4HR PRN PRN Reason: Cough or Congestion Stop: 08/02/16 19:25 Dextrose/Sodium Chloride (D5-0.9%Ns) 1,000 mls @ 100 mls/hr IV .Q10H [facility] Stop: 08/02/16 19:29 Last Admin: 06/05/16 20:57 Dose: 100 mls/hr Fluconazole (Diflucan) 200 mg in 100 mls @ 100 mls/hr IV Q24HR [facility] Stop: 08/03/16 20:59 Last Infusion: 06/05/16 22:15 Dose: Infused Lactated Ringer's (Lactated Ringer) 1,000 mls @ 0 mls/hr IV .Q0M JONAS PRN Reason: TKO Stop: 06/07/16 07:59 Metronidazole (Flagyl) 500 mg in 100 mls @ 100 mls/hr IV Q8H [facility] Stop: 08/05/16 10:59 Ipratropium [place] (Atrovent Neb 0.5mg/2.5ml) 0.5 mg IH Q2HR PRN PRN Reason: Shortness of Breath or Wheeze Stop: 08/02/16 19:25 Lidocaine HCl (Xylocaine Viscous 2%) 15 ml PO TID [facility] Stop: 08/02/16 20:59 Last Admin: 06/06/16 09:28 Dose: 15 ml Morphine Sulfate (Morphine) 2 mg IVP Q4HR PRN PRN Reason: Pain (Severe) Stop: 08/02/16 19:25 Last Admin: 06/05/16 02:44 Dose: 2 mg Multivitamins/Vitamin C (Theragran) 1 tab PO DAILY [facility] Stop: 08/03/16 08:59 Last Admin: 06/06/16 09:29 Dose: 1 tab Nystatin (Nystatin) 100,000 units PO TID [facility] Stop: 08/02/16 20:59 Last Admin: 06/06/16 09:29 Dose: 100,000 units Ondansetron HCl (Zofran) 4 mg IV Q8H PRN PRN Reason: Nausea / Vomiting Stop: 08/02/16 19:25 Last Admin: 06/04/16 04:22 Dose: 4 mg Pantoprazole Sodium (Protonix) 40 mg IVP BID [facility] Stop: 08/03/16 08:59 Last Admin: 06/06/16 09:29 Dose: 40 mg Trimethoprim/Sulfamethoxazole (Bactrim Ds) 1 tab PO DAILY [facility] Stop: 08/03/16 08:59 Last Admin: 06/06/16 09:28 Dose: 1 tab Zolpidem Tartrate (Ambien) 10 mg PO HS PRN PRN Reason: Insomnia Stop: 08/02/16 19:25 General: no acute distress, well developed, well nourished HEENT: atraumatic, normocephalic, PERRLA, EOMI, moist mucous membrane Neck: supple, no thyromegaly Cardiovascular: S1S2, regular Lungs: clear to auscultation bilaterally, clear to percussion Abdomen: soft, no tender, no distended Extremities: other (left heel wound), no cyanosis, no clubbing, no edema Neurological: awake, alert, oriented Skin: intact - Procedures Procedures: Procedures Procedure Code Date EGD BIOPSY SINGLE/MULTIPLE 22955 02/10/16 EXCISION OF ESOPHAGUS, ENDO, DIAGN [id number] 02/10/16 EXCISION OF STOMACH, PYLORUS, ENDO, DIAGN [id number] 02/10/16 Infectious Disease Assmt/Plan - Problem List Patient Problems: All Active Problems HIV disease (Acute) B20 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 HIV disease. 2. Esophagitis. - Plan Plan: Continue prohylactic bactrim DS, Zithromax and diflucan. DC planning.
[2016-06-06] MEDS: D5-0.9%NS 1,000 ML IV SCH (11:53)
[2016-06-06 12:16] LABS: HEP B CORE IGM Negative (Negative); HEP C ANTIBODY <0.1 s/co ratio (0.0-0.9)
--- NOTE | 2016-06-06 12:18 | Internal Medicine Prog Note ---
Internal Medicine Subjective - Subjective Service Date: 06/06/16 (s/p colonoscopy denies any abdominal pain) Patient seen and examined:: with staff Patient is:: awake Per staff patient is:: no adverse event Internal Medicine Objective - Results Result Diagrams: 06/05/16 05:40 06/05/16 05:40 Recent Labs: Laboratory Last Values WBC 2.5 Th/cmm (4.8-10.8) L 06/05/16 05:40 RBC 4.00 Mil/cmm (4.30-5.70) L 06/05/16 05:40 Hgb 11.7 gm/dL (13.2-17.3) L 06/05/16 05:40 Hct 33.7 % (39.0-49.0) L 06/05/16 05:40 MCV 84.3 fl (80-99) 06/05/16 05:40 MCH 29.3 pg (26.0-30.0) 06/05/16 05:40 MCHC Differential 34.8 pg (28.0-36.0) 06/05/16 05:40 RDW 13.2 % (11.5-20.0) 06/05/16 05:40 Plt Count 142 Th/cmm (150-400) L 06/05/16 05:40 MPV 8.6 fl 06/05/16 05:40 Absolute Lymphs (auto) 0.5 06/03/16 15:35 Band Neutrophils % 2 % (0-10) 06/05/16 05:40 Neutrophils (Manual) 50 % (40-80) 06/05/16 05:40 Lymphocytes 26 % (20-50) 06/05/16 05:40 Monocytes 7 % (2-10) 06/05/16 05:40 Eosinophils 15 % (0-5) H 06/05/16 05:40 Nucleated RBCs 0 06/03/16 15:35 Platelet Estimate ADEQUATE (NORMAL) 06/05/16 05:40 Platelet Morphology NORMAL (NORMAL) 06/05/16 05:40 Poikilocytosis 1+ 06/03/16 15:35 Anisocytosis 1+ 06/03/16 15:35 Ovalocytes 1+ 06/03/16 15:35 RBC Morph Micro Appear NORMAL (NORMAL) 06/05/16 05:40 Hematology Comments 06/03/16 15:35 Sodium 132 mEq/L (136-145) L 06/05/16 05:40 Potassium 4.3 mEq/L (3.5-5.1) 06/05/16 05:40 Chloride 102 mEq/L (98-107) 06/05/16 05:40 Carbon Dioxide 25.1 mEq/L (21.0-31.0) 06/05/16 05:40 Anion Gap 9.2 (7.0-16.0) 06/05/16 05:40 BUN 12 mg/dL (7-25) 06/05/16 05:40 Creatinine 0.8 mg/dL (0.7-1.3) 06/05/16 05:40 Est GFR ( Amer) > 60.0 ml/min (>90) 06/05/16 05:40 Est GFR (Non-Af Amer) > 60.0 ml/min 06/05/16 05:40 BUN/Creatinine Ratio 15.0 06/05/16 05:40 Glucose 107 mg/dL (70-105) H 06/05/16 05:40 POC Glucose 87 MG/DL (70 - 105) 06/06/16 07:46 Calcium 8.8 mg/dL (8.6-10.3) 06/05/16 05:40 Magnesium 1.9 mg/dL (1.9-2.7) 06/04/16 05:52 Total Bilirubin 0.3 mg/dL (0.3-1.0) 06/04/16 05:52 AST 26 U/L (13-39) 06/04/16 05:52 ALT 17 U/L (7-52) 06/04/16 05:52 Alkaline Phosphatase 91 U/L (34-104) 06/04/16 05:52 Ammonia 40 umol/L (16-53) 06/04/16 05:52 Troponin I < 0.01 ng/mL (0.01-0.05) L 06/03/16 15:35 Total Protein 7.0 gm/dL (6.0-8.3) 06/04/16 05:52 Albumin 3.6 gm/dL (4.2-5.5) L 06/04/16 05:52 Globulin 3.4 gm/dL 06/04/16 05:52 Albumin/Globulin Ratio 1.1 (1.0-1.8) 06/04/16 05:52 Lipase 45 U/L (11-82) 06/03/16 15:35 Vitamin B12 228 pg/mL (211-946) 06/04/16 05:52 Folic Acid 18.5 ng/mL (>3.0) 06/04/16 05:52 TSH 13.26 uIU/ml (0.34-5.60) H 06/04/16 05:52 Urine Source CLEAN C 06/03/16 15:45 Urine Color YELLOW 06/03/16 15:45 Urine Clarity CLEAR (CLEAR) 06/03/16 15:45 Urine pH 7.0 06/03/16 15:45 Ur Specific [place] 1.020 (1.005-1.030) 06/03/16 15:45 Urine Protein NEGATIVE mg/dL (NEGATIVE) 06/03/16 15:45 Urine Glucose (UA) NEGATIVE mg/dL (NEGATIVE) 06/03/16 15:45 Urine Ketones NEGATIVE mg/dL (NEGATIVE) 06/03/16 15:45 Urine Blood NEGATIVE (NEGATIVE) 06/03/16 15:45 Urine Nitrate NEGATIVE (NEGATIVE) 06/03/16 15:45 Urine Bilirubin NEGATIVE (NEGATIVE) 06/03/16 15:45 Urine Urobilinogen 0.2 E.U./dL (0.2 - 1.0) 06/03/16 15:45 Ur Leukocyte Esterase NEGATIVE (NEGATIVE) 06/03/16 15:45 % CD4 Cells 8.4 06/03/16 15:35 Absolute CD4 Count 42 06/03/16 15:35 T-Lymph CD4/CD8 Ratio 3.1 06/03/16 15:35 % CD8 Cells 0.13 06/03/16 15:35 Absolute CD8 Count 312 06/03/16 15:35 Hep Bs Antigen Negative (Negative) 06/05/16 05:40 Hep B Core IgM Ab Negative (Negative) 06/05/16 05:40 Hepatitis C Antibody <0.1 s/co ratio (0.0-0.9) 06/05/16 05:40 - Physical Exam Vitals and I&O: Vital Signs Temp 97.2 F 06/06/16 07:00 Pulse 66 06/06/16 07:00 Resp 18 06/06/16 07:00 BP 138/79 06/06/16 07:00 Pulse Ox 98 06/06/16 03:56 Intake & Output 06/05/16 06/06/16 06/06/16 18:59 06:59 18:59 Intake Total 371.876 9077 Balance 217.317 2784 Intake: Intake, IV Amount 143.654 7398 D5-0.9%Ns 1,000 ml @ 100 731.221 4183 mls/hr IV .Q10H [facility] Rx#: [id number] Fluconazole 200mg/100mL 100 200 mg In 100 ml @ 100 mls/hr IV Q24HR [facility] Rx#: [id number] Other: # Voids 1 Stool Characteristics Liquid Active Medications: Current Medications Acetaminophen (Tylenol) 650 mg PO Q4HR PRN PRN Reason: Mild Pain or Fever >101 Stop: 08/02/16 19:25 Acetaminophen/Hydrocodone Bitart ([place] 5mg/325mg) 1 tab PO Q4H PRN PRN Reason: Pain (Moderate) Stop: 08/02/16 19:25 Last Admin: 06/06/16 09:29 Dose: 1 tab Albuterol Sulfate (Albuterol 2.5mg/3ml Neb Ud) 2.5 mg IH Q2HR PRN PRN Reason: Shortness of Breath or Wheeze Stop: 08/02/16 19:25 Azithromycin (Zithromax) 1,250 mg PO QTHUR [facility] Stop: 08/04/16 15:59 Last Admin: 06/05/16 15:52 Dose: 1,250 mg Docusate Sodium (Colace) 100 mg PO BID PRN PRN Reason: Constipation Stop: 08/04/16 16:59 Last Admin: 06/05/16 11:25 Dose: 100 mg Guaifenesin (Robitussin) 200 mg PO Q4HR PRN PRN Reason: Cough or Congestion Stop: 08/02/16 19:25 Dextrose/Sodium Chloride (D5-0.9%Ns) 1,000 mls @ 100 mls/hr IV .Q10H [facility] Stop: 08/02/16 19:29 Last Admin: 06/06/16 11:53 Dose: 100 mls/hr Fluconazole (Diflucan) 200 mg in 100 mls @ 100 mls/hr IV Q24HR [facility] Stop: 08/03/16 20:59 Last Infusion: 06/05/16 22:15 Dose: Infused Lactated Ringer's (Lactated Ringer) 1,000 mls @ 0 mls/hr IV .Q0M JONAS PRN Reason: TKO Stop: 06/07/16 07:59 Metronidazole (Flagyl) 500 mg in 100 mls @ 100 mls/hr IV Q8H [facility] Stop: 08/05/16 10:59 Last Admin: 06/06/16 11:55 Dose: 100 mls/hr Ipratropium [place] (Atrovent Neb 0.5mg/2.5ml) 0.5 mg IH Q2HR PRN PRN Reason: Shortness of Breath or Wheeze Stop: 08/02/16 19:25 Lidocaine HCl (Xylocaine Viscous 2%) 15 ml PO TID [facility] Stop: 08/02/16 20:59 Last Admin: 06/06/16 09:28 Dose: 15 ml Morphine Sulfate (Morphine) 2 mg IVP Q4HR PRN PRN Reason: Pain (Severe) Stop: 08/02/16 19:25 Last Admin: 06/05/16 02:44 Dose: 2 mg Multivitamins/Vitamin C (Theragran) 1 tab PO DAILY [facility] Stop: 08/03/16 08:59 Last Admin: 06/06/16 09:29 Dose: 1 tab Nystatin (Nystatin) 100,000 units PO TID [facility] Stop: 08/02/16 20:59 Last Admin: 06/06/16 09:29 Dose: 100,000 units Ondansetron HCl (Zofran) 4 mg IV Q8H PRN PRN Reason: Nausea / Vomiting Stop: 08/02/16 19:25 Last Admin: 06/04/16 04:22 Dose: 4 mg Pantoprazole Sodium (Protonix) 40 mg IVP BID [facility] Stop: 08/03/16 08:59 Last Admin: 06/06/16 09:29 Dose: 40 mg Trimethoprim/Sulfamethoxazole (Bactrim Ds) 1 tab PO DAILY [facility] Stop: 08/03/16 08:59 Last Admin: 06/06/16 09:28 Dose: 1 tab Zolpidem Tartrate (Ambien) 10 mg PO HS PRN PRN Reason: Insomnia Stop: 08/02/16 19:25 General: alert HEENT: NC/AT, PERRLA Neck: Supple Lungs: CTAB Cardiovascular: RRR, Normal S1, Normal S2, without murmur Abdomen: soft non-tender, non-distended - Procedures Procedures: Procedures Procedure Code Date EGD BIOPSY SINGLE/MULTIPLE 58760 02/10/16 EXCISION OF ESOPHAGUS, ENDO, DIAGN [id number] 02/10/16 EXCISION OF STOMACH, PYLORUS, ENDO, DIAGN [id number] 02/10/16 Internal Medicine Assmt/Plan - Assessment Assessment: gastritis Atypical Chest Pain-improved Abdominal Pain hyponatremia protein francisco malnutrition - Plan Plan: advance diet, if tolerate may dc if cleared by gi and if tolerate diet ppi cpm
--- NOTE | 2016-06-06 12:44 | Operative Report ---
INPATIENT GASTROINTESTINAL PROCEDURE PROCEDURE: Colonoscopy with biopsy. REFERRING PHYSICIAN: Dr. Baker. REASON FOR PROCEDURE: Lower abdominal pain, HIV. CONSENT: Risks, benefits, alternatives, nature, indication, possible outcomes were discussed. Mentioned bleeding, infection, perforation, , disability, cardiopulmonary distress and arrest, missed lesion and cancers, need for surgery. The patient expressed understanding and provided informed consent. PREOPERATIVE DIAGNOSIS: Lower abdominal pain. POSTOPERATIVE DIAGNOSES: Ileocecal valve colitis, possible polyp in the transverse colon versus fold. MEDICATIONS: Provided by anesthesiologist. DESCRIPTION OF PROCEDURE: The patient was placed on left side. Rectal exam was performed and was normal. Pediatric colonoscope was advanced from the anus to the cecum confirmed by appendiceal orifice and ileocecal valve. Terminal ileum was intubated and appeared to be normal. Biopsies were taken and ileocecal valve had some mild erythema suggestive of colitis, status post biopsy. Normal colonic mucosa. Transverse polyp versus fold measuring 2 mm, removed by forceps completely. Once in the rectum, retroflexion was performed, scope was straightened and removed along with air. COMPLICATIONS: None. FINDINGS: 1. Ileocecal valve colitis, status post biopsy. 2. Normal appearing terminal ileum, status post biopsy. 3. Possible transverse polyp versus folds, status post biopsy. RECOMMENDATIONS: 1. Follow up on biopsy. 2. Provide patient with antibiotics. 3. Repeat colonoscopy in 3-5 years or sooner based upon pathology. Thank you for allowing me to participate. Please call me if any questions. [facility]# [id number]
--- NOTE | 2016-06-09 11:51 | Pathology Report ---
[id number] Collection date: 06/06/2016 Surgeon: Dr. Yolande Keys. Specimen Description: 1. Terminal ileum biopsy. 2. Ileocecal valve biopsy. 3. Transverse colon biopsy. Gross Description: Part I: Received in formalin are two maria soft tissue fragments ranging from 0.1 to 0.2 cm in greatest dimension. Totally submitted in one cassette labeled A. Gross Description: Part II: Received in formalin is a single maria soft tissue fragment measuring 0.2 cm in greatest dimension. Totally submitted in one cassette labeled B. Gross Description: Part III: Received in formalin is a single maria soft tissue fragment measuring 0.3 cm in greatest dimension. Totally submitted in one cassette labeled C. Microscopic Description: Part I: The histologic sections show intestinal mucosa with areas of mucosal ulceration and acute and chronic inflammation consisting of neutrophils admixed with lymphocytes and plasma cells. Diagnosis: Part I: Ulcerated terminal ileum mucosa showing acute and chronic inflammation. Microscopic Description: Part II: The histologic sections show colon mucosa with mild chronic inflammation present consisting of lymphocytes and plasma cells. There is no evidence for ulceration or atypia. Diagnosis: Part II: Mild nonspecific chronic inflammation, ileocecal valve. Microscopic Description: Part III: The histologic sections show colon mucosa with mild chronic inflammation present consisting of lymphocytes and plasma cells. There is no evidence for ulceration or atypia. Diagnosis: Part III: Mild nonspecific chronic inflammation (transverse colon biopsy). Comment: An area of superficial mucosal ulceration is seen in the terminal ileum. The colon biopsies show only mild nonspecific chronic inflammation. Clinical correlation and followup is recommended. [facility]# [id number] [facility]
[2016-06-13 09:45] LABS: HEP B CORE AB TOTAL POSITIVE; HEP BE VIRUS AB POSITIVE
--- NOTE | 2016-06-25 00:31 | Discharge Summary ---
HISTORY OF PRESENT ILLNESS: This is a 50-year-old male who is well known to me according to the patient, has been having abdominal pain for a week as well as the right-sided chest discomfort. PHYSICAL EXAMINATION: GENERAL: The patient is well developed, well nourished, no acute distress. VITAL SIGNS: Stable. HEENT: Head normocephalic, atraumatic. NECK: Supple. No mass. LUNGS: Clear bilaterally. CARDIOVASCULAR: Regular rate and rhythm. No murmurs or gallops. ABDOMEN: Soft, nontender, nondistended. Positive bowel sounds in all 4 quadrants. HOSPITAL COURSE: During the hospital stay, the patient was admitted to the med/surg unit. The patient had a consultation with Dr. Alex Huggins, Dr. Massey. The patient was kept on IV fluids for hydration. Also, electrolytes were being monitored. The patient was kept on IV antibiotics of Diflucan 200 mg IV q.24h. and also Protonix 40 mg as well. The patient had a CT of the abdomen and pelvis, impression was no definite acute abnormalities. FINAL DIAGNOSES: ____ chest pain, abdominal pain, HIV, hyponatremia and protein-calorie malnutrition. The patient had a consultation with Dr. 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 For this reason, the patient was later then stabilized and stable for condition. CONDITION UPON DISCHARGE: Fair. DISPOSITION: The patient is going home. The patient is to follow up with the PCP in 1 week. JOB# [id number]
== END 2016-06-06 18:20 | disposition home or self-care (01) | DRG 975 ==
LOC: ER 14:14 → MSI 18:25
PROVIDERS: ADMIT Internal Medicine; ATTEND Internal Medicine
PROC: 0DBB8ZX Excision of Ileum, Via Natural or Artificial Opening Endoscopic, Diagnostic (ICD-10-PCS; principal; 2016-06-06)
PROC: 0DBC8ZX Excision of Ileocecal Valve, Via Natural or Artificial Opening Endoscopic, Diagnostic (ICD-10-PCS; 2016-06-06)
PROC: 0DBL8ZX Excision of Transverse Colon, Via Natural or Artificial Opening Endoscopic, Diagnostic (ICD-10-PCS; 2016-06-06)
DX: B20 Human immunodeficiency virus [HIV] disease (principal); B00.89 Other herpesviral infection; E46 Unspecified protein-calorie malnutrition; E87.1 Hypo-osmolality and hyponatremia; K20.8 Other esophagitis; R07.89 Other chest pain; K52.89 Other specified noninfective gastroenteritis and colitis; D12.3 Benign neoplasm of transverse colon; Z98.890 Other specified postprocedural states; Z83.3 Family history of diabetes mellitus; Z82.49 Family history of ischemic heart disease and other diseases of the circulatory system; Z68.22 Body mass index [BMI] 22.0-22.9, adult
CPT/HCPCS: 36415-UA; 71010-TC; 76700-TC; 80048-TC; 80053-TC; 81003-TC; 82140-TC; 82607-90; 82746-90; 82948-90; 83690-TC; 83735-TC; 84443-TC; 84484-TC; 85007-TC; 85027-TC; 86360-90; 86704-90; 86705-90; 86706-90; 86707-90; 86803-90; 87046-90; 87209-90; 87340-90; 87341-90; 87350-90; 87516-90; 87521-90; 88305-90; 90799; 93005; 94760; C9113; J1450; J2270; J2405; J2704; J7030; J7042; Z7506; Z7610